=== PATIENT | male | born 1995 | race African-American/Black ===

== ENCOUNTER 2017-03-05 00:58 | Emergency (ER) | payer BC ==
[~2017-03-05] VITALS: Ht 172.7 cm; Wt 78.0 kg
[2017-03-05 01:39] VITALS: BP 135/63; PULSE 118; RESP 18; TEMP 98.4; O2SAT 98
--- NOTE | 2017-03-05 02:24 | PD ---
HPI Chief Complaint: Alcohol/Drug Intoxication Time Seen by Provider: 01:54 Travel History International Travel<30 days: No Contact w/Intl Traveler<30days: No Traveled to known affect area: No History of Present Illness HPI 21-year-old young man who presents emergency department after reportedly drank too much tonight. EMS reports he was a front house where he drank copious amounts of alcohol because he recently got accepted to the and was about to leave. They report that he began vomiting everywhere wasn't able to really walk and so people in the house called the ambulance. Patient denies any injuries or falling. Endorses alcohol use tonight. Denies any complaints. History Past Medical History Medical History: Denies Significant Hx Tetanus Vaccination: < 5 Years Influenza Vaccination: No Past Surgical History Surgical History: No Previous Surgery Social History Alcohol Use: Yes (SOCIALLY) Tobacco Use: No Allergies-Medications (Allergen,Severity, Reaction): Coded Allergies: No Known Allergies (Unverified , 03/05/17) Reported Meds & Prescriptions Reported Meds & Active Scripts Active No Active Prescriptions or Reported Medications Review of Systems ROS Limitations: Intoxication Physical Exam Narrative GENERAL: Well-appearing 21-year-old man, no acute distress. SKIN: Focused skin assessment warm/dry. HEAD: No evidence of trauma. EYES: Pupils equal and round. No scleral icterus. No injection or drainage. ENT: No nasal bleeding or discharge. Mucous membranes pink and moist. NECK: Trachea midline. No JVD. CARDIOVASCULAR: Regular rate and rhythm. No murmur appreciated. RESPIRATORY: No accessory muscle use. Clear to auscultation. Breath sounds equal bilaterally. GASTROINTESTINAL: Abdomen soft, non-tender, nondistended. Hepatic and splenic margins not palpable. MUSCULOSKELETAL: No obvious deformities. NEUROLOGICAL: Awake, decreased alertness. Moves all extremities. Slurs his speech. Drowsy. No focal deficits. Data Data Last Documented VS Vital Signs Date Time Temp Pulse Resp B/P Pulse Ox O2 Delivery O2 Flow Rate FiO2 03/05/17 01:39 98.4 118 18 135/63 98 MDM Medical Decision Making Medical Screen Exam Complete: Yes Emergency Medical Condition: Yes Differential Diagnosis Intoxication, occult injury, illicit drug use, infection or other acute illness Narrative Course Medical decision making This a 21-year-old man who presents after overindulging in alcohol. Denies any trauma. He has no evidence of trauma on him. Otherwise looks well. We'll sleep it off in the emergency department. Discharge in the morning when sober. Diagnosis Primary Impression: Alcohol intoxication Qualified Code: F10.120 - Alcohol intoxication, uncomplicated Additional Instructions: Avoid excessive alcohol use. All with her primary doctor in 2-4 days if you're not well. Med/Other Pt SpecificInfo: No Change to Meds Scripts No Active Prescriptions or Reported Meds Disposition: 01 DISCHARGE HOME Condition: Stable Brandon Figueroa MD Mar 05, 2017 02:24
[2017-03-05 03:50] VITALS: BP 128/74; PULSE 108; RESP 16; O2SAT 100
[2017-03-05 04:50] VITALS: BP 103/53; PULSE 92; RESP 16; O2SAT 97
[2017-03-05 05:50] VITALS: BP 122/58; PULSE 86; RESP 16; O2SAT 99
[2017-03-05 09:03] VITALS: BP 118/74; PULSE 78; RESP 16; O2SAT 100
== END 2017-03-05 09:06 | disposition home or self-care (01) ==
LOC: NEPC 00:58
DX: F10.120 Alcohol abuse with intoxication, uncomplicated (principal)
CPT/HCPCS: 99284